=== PATIENT | female | born 1960 | race Two or more races ===

== ENCOUNTER 2024-10-01 20:19 | Emergency (ER) | payer BC ==
[~2024-10-01] VITALS: Ht 149.9 cm; Wt 83.9 kg
[2024-10-01] MEDS ORDERED: METFORMIN HCL500 M3 PO (20:29)
[2024-10-01] MEDS ORDERED: CEFTRIAXONE SODIUM 1,000 MG VIAL IM STA (21:17)
[2024-10-01] MEDS ORDERED: GENTAMICIN SULFATE 0.15 MG/DR DROPS 5ML OP STA (21:23)
[2024-10-01] MEDS ORDERED: CEFTRIAXONE SODIUM 1,000 MG VIAL ONE (21:27)
[2024-10-01] MEDS ORDERED: GENTAMICIN SULFATE 0.15 MG/DR DROPS 5ML OP ONE (21:27)
== END 2024-10-01 22:15 | disposition home or self-care (01) ==
LOC: ER 20:20
DX: H10.9 Unspecified conjunctivitis (principal)